=== PATIENT | male | born 1990 | race Caucasian/White ===

== ENCOUNTER 2021-07-06 18:02 | Emergency (ER) | payer OTHER, BC ==
[~2021-07-06] VITALS: Ht 180.3 cm; Wt 104.3 kg
== END 2021-07-06 21:14 | disposition home or self-care (01) ==
LOC: ED 18:02
DX: S00.33XA Contusion of nose, initial encounter (principal); S09.90XA Unspecified injury of head, initial encounter; Y04.0XXA Assault by unarmed brawl or fight, initial encounter; Y99.0 Civilian activity done for income or pay
CPT/HCPCS: 70160; 99284-25

== ENCOUNTER 2022-06-16 18:20 | Emergency (ER) | payer BC ==
[~2022-06-16] VITALS: Ht 180.3 cm; Wt 93.0 kg
--- NOTE | 2022-06-17 16:06 | EKG ---
[facility] [address] [facility] [address] [place] [address] Signed Normal sinus rhythm Normal ECG No previous ECGs available Confirmed by ZAKIYA VAZQUEZ MD ([id number] on 06/17/2022 4:06:37 PM Electronically Signed By: ZAKIYA VAZQUEZ MD 06/17/22 1606 PATIENT NAME: IKE MARTINO Electrocardiogram DATE OF : 86 PHYSICIAN: ZAKIYA VAZQUEZ MD REPORT #: [id number] REPORT IS CONFIDENTIAL AND NOT TO BE RELEASED WITHOUT AUTHORIZATION
== END 2022-06-16 19:55 | disposition home or self-care (01) ==
LOC: ED 18:20
DX: R00.2 Palpitations (principal)
CPT/HCPCS: 36415; 80053; 83735; 84443; 84484; 85025; 85379; 93005; 93010; 99285-25